=== PATIENT | female | born 1935 | race Asian ===

== ENCOUNTER 2019-08-07 10:41 | Emergency (ER) | payer OTHER ==
[2019-08-07 11:10] VITALS: BP 138/62; PULSE 98; TEMP 99.7; BMI 28.0
--- NOTE | 2019-08-07 14:56 | PDOC ---
History of Present Illness - General Chief Complaint: Cold Symptoms Stated Complaint: COUGHING Time Seen by Provider: 08/07/19 11:18 - History of Present Illness Initial Comments: 08/07/19 14:55 84-year-old female with chills and night sweats x2 days with associated cough Past History - Past Medical History Allergies/Adverse Reactions: Allergies Allergy/AdvReac Type Severity Reaction Status Date / Time No Known Allergies Allergy Verified 09/20/16 10:54 Home Medications: Ambulatory Orders Clopidogrel Bisulfate [Plavix -] 75 mg PO DAILY 09/20/16 Dexlansoprazole [Dexilant] 60 mg PO DAILY 09/20/16 Donepezil HCl [Aricept -] 5 mg PO DAILY 09/20/16 Gabapentin 100 mg PO BID 09/20/16 Levothyroxine [Synthroid -] 75 mcg PO DAILY 09/20/16 Meloxicam [Mobic (Nf) -] 15 mg PO ASDIR PRN 09/20/16 Valsartan/Hydrochlorothiazide [Valsartan-Hctz 160-25 mg Tab] 1 each PO DAILY 12/02 Asthma: Yes COPD: No HTN: Yes Thyroid Disease: Yes - Immunization History Immunization Up to Date: No - Psycho Social/Smoking Cessation Hx Smoking History: Never smoked Hx Alcohol Use: No Drug/Substance Use Hx: No Review of Systems - Review of Systems Constitutional: Yes: Chills, Malaise, Night Sweats Respiratory: Yes: Cough *Physical Exam - Vital Signs Last Vital Signs Temp Pulse Resp BP Pulse Ox 99.7 F H 98 H 18 138/62 100 08/07/19 11:08 08/07/19 11:08 08/07/19 11:08 08/07/19 11:08 08/07/19 11:08 - Physical Exam 08/07/19 14:55 GENERAL: The patient is awake, alert, and fully oriented, in no acute distress. HEAD: Normal with no signs of trauma. EYES: sclera anicteric, conjunctiva clear. ENT: Ears normal tympanic membranes normal oropharynx clear uvula midline NECK: Normal range of motion LUNGS: Breath sounds equal, clear to auscultation bilaterally. No wheezes, and no crackles. HEART: S1 and S2 without murmur, rub or gallop. ABDOMEN: Soft, nontender, normoactive bowel sounds. No guarding, no rebound. No masses. EXTREMITIES: Normal range of motion, no edema. No clubbing or cyanosis. No cords, erythema, or tenderness. NEUROLOGICAL: Cranial nerves II through XII grossly intact. Normal speech, normal gait. PSYCH: Normal mood, normal affect. SKIN: Warm, Dry, normal turgor, no rashes or lesions noted. ED Treatment Course - RADIOLOGY Radiology Studies Ordered: Category Date Time Status CHEST PA & LAT [RAD] Stat Radiology 08/07/19 12:07 Completed Medical Decision Making - Medical Decision Making 08/07/19 14:55 Follow-up with primary care physician supportive care Discharge - Discharge Information Problems reviewed: Yes Clinical Impression/Diagnosis: Viral URI with cough Condition: Stable Disposition: HOME - Admission No - Follow up/Referral - Patient Discharge Instructions Patient Printed Discharge Instructions: DI for Viral Upper Respiratory Infection -- Adult Additional Instructions: Tylenol and Motrin as directed for chills and sweats. Return to the emergency room for worsening symptoms. Please follow-up with your primary care physician in 2 to 3 days for further evaluation and treatment options. Your influenza swab today was negative - Post Discharge Activity
== END 2019-08-07 15:04 | disposition home or self-care (01) ==
LOC: JERFT 10:41
DX: J06.9 Acute upper respiratory infection, unspecified (principal); B97.89 Other viral agents as the cause of diseases classified elsewhere; I10 Essential (primary) hypertension; E07.9 Disorder of thyroid, unspecified; J45.909 Unspecified asthma, uncomplicated; Z79.02 Long term (current) use of antithrombotics/antiplatelets
CPT/HCPCS: 71046-TC-FY; 87804; 99282-25